=== PATIENT | female | born 1955 | race Caucasian/White ===

== ENCOUNTER → 2023-10-25 12:50 | Outpatient (REF) | payer MEDICARE, OTHER, SELFPAY | LOC: RCS 12:50 | PROVIDERS: ATTENDING PHYSICIAN Family Medicine | DX: R06.02 Shortness of breath (principal); R00.2 Palpitations | CPT/HCPCS: 93017 ==

== ENCOUNTER → 2023-11-05 08:08 | Outpatient (REF) | payer MEDICARE, OTHER, SELFPAY | LOC: RCS 08:08 | PROVIDERS: ATTENDING PHYSICIAN Family Medicine | DX: R06.02 Shortness of breath (principal); R00.2 Palpitations | CPT/HCPCS: 93225; 93226 ==

== ENCOUNTER → 2023-12-25 15:39 | Outpatient (REF) | payer MEDICARE, OTHER, SELFPAY | LOC: WDC 15:39 | PROVIDERS: ATTENDING PHYSICIAN Obstetrics & Gynecology Gynecology; FAMILY PHYSICIAN Family Medicine | DX: Z12.31 Encounter for screening mammogram for malignant neoplasm of breast (principal) | CPT/HCPCS: 77063; 77067 ==

== ENCOUNTER 2024-04-23 06:14 | Day surgery (SDC) | payer MEDICARE, OTHER, SELFPAY | END 2024-04-23 09:24 | disposition home or self-care (01) | LOC: GI 06:14 | PROVIDERS: ATTENDING PHYSICIAN Internal Medicine; FAMILY PHYSICIAN Family Medicine | DX: K51.20 Ulcerative (chronic) proctitis without complications (principal); Q43.8 Other specified congenital malformations of intestine | CPT/HCPCS: 45380; 88305 ==

== ENCOUNTER → 2024-11-02 12:31 | Outpatient (REF) | payer MEDICARE, OTHER, SELFPAY | LOC: RAD 12:31 | PROVIDERS: ATTENDING PHYSICIAN Surgery; FAMILY PHYSICIAN Family Medicine | DX: K43.9 Ventral hernia without obstruction or gangrene (principal) | CPT/HCPCS: 74177; Q9967 ==

== ENCOUNTER → 2024-11-20 06:25 | Outpatient (REF) | payer MEDICARE, OTHER, SELFPAY ==
[2024-11-20 09:08] LABS: Hematocrit 36.6 % (37.0-47.0); Hemoglobin 12.7 g/dL (12.0-16.0); Mean Corp Hgb Conc. 34.7 g/dL (33.0-37.0); Mean Corpuscular Volume 86.9 fL (81.0-99.0); Platelet Count 230 10^3/uL (130-400); Red Cell Dist. Width 13.0 % (11.5-14.5)
[2024-11-20 09:47] LABS: Blood Urea Nitrogen 12 mg/dl (7-17); Calcium 9.4 mg/dl (8.4-10.2); Carbon Dioxide 29 mmol/L (22-30); Chloride 101 mmol/L (98-107); Glucose 89 mg/dl (70-99); Potassium 4.9 mmol/L (3.5-5.1); Sodium 136 mmol/L (135-145); eGFR > 60.00
== END ==
LOC: SDSPAT 06:25
PROVIDERS: ATTENDING PHYSICIAN Surgery; FAMILY PHYSICIAN Family Medicine
DX: Z01.818 Encounter for other preprocedural examination (principal)
CPT/HCPCS: 36415; 80048; 85027; 93005

== ENCOUNTER 2024-11-27 06:18 | Day surgery (SDC) | payer MEDICARE, OTHER, SELFPAY ==
[2024-11-20 14:25] VITALS: BMI 20.7
[2024-11-27] VITALS (9 sets, daily range): BP systolic 114–141; BP diastolic 68–83; BMI 20.7
[2024-11-27] MEDS: TYLENOL 1000 MG PO (08:37)
[2024-11-27] MEDS: NORMOSOL-R/PLASMALYTE-A 1000 IV (08:38)
[2024-11-27] MEDS: DILAUDID 0.5 MG IV (10:57)
[2024-11-27] MEDS: ZOFRAN 4 MG IV (12:26)
== END 2024-11-27 12:45 | disposition home or self-care (01) ==
LOC: SDS 06:18
PROVIDERS: ATTENDING PHYSICIAN Surgery; FAMILY PHYSICIAN Nurse Practitioner Acute Care
DX: K43.9 Ventral hernia without obstruction or gangrene (principal); K42.9 Umbilical hernia without obstruction or gangrene; G47.33 Obstructive sleep apnea (adult) (pediatric)
CPT/HCPCS: 49591

== ENCOUNTER → 2024-12-29 14:15 | Outpatient (REF) | payer MEDICARE, OTHER, SELFPAY | LOC: WDC 14:15 | PROVIDERS: ATTENDING PHYSICIAN Obstetrics & Gynecology Gynecology; FAMILY PHYSICIAN Family Medicine | DX: Z12.31 Encounter for screening mammogram for malignant neoplasm of breast (principal) | CPT/HCPCS: 77063; 77067 ==

== ENCOUNTER → 2025-03-11 06:35 | Outpatient (REF) | payer MEDICARE, OTHER, SELFPAY | LOC: MRI 06:35 | PROVIDERS: ATTENDING PHYSICIAN Orthopaedic Surgery; FAMILY PHYSICIAN Family Medicine | DX: M25.561 Pain in right knee (principal) | CPT/HCPCS: 73721 ==

== ENCOUNTER 2025-05-02 20:35 | Emergency (ER) | payer MEDICARE, OTHER, SELFPAY ==
[2025-05-02 20:42] VITALS: BP 160/83
[2025-05-02 20:58] LABS: Hematocrit 35.8 % (37.0-47.0); Hemoglobin 12.6 g/dL (12.0-16.0); Mean Corp Hgb Conc. 35.2 g/dL (33.0-37.0); Mean Corpuscular Volume 84.8 fL (81.0-99.0); Nucleated Red Blood Cells % 0 %; Platelet Count 233 10^3/uL (130-400); Red Cell Dist. Width 12.0 % (11.5-14.5)
[2025-05-02 21:19] LABS: ALT (SGPT) 24 U/L (0-35); AST (SGOT) 29 U/L (14-36); Albumin 4.9 g/dl (3.5-5.0); Alkaline Phosphatase 71 U/L (38-126); Blood Urea Nitrogen 12 mg/dl (7-17); Calcium 9.6 mg/dl (8.4-10.2); Carbon Dioxide 28 mmol/L (22-30); Chloride 96 mmol/L (98-107); Glucose 96 mg/dl (70-99); Potassium 3.9 mmol/L (3.5-5.1); Sodium 131 mmol/L (135-145); Total Protein 8.2 g/dl (6.3-8.2); eGFR > 60.00
[2025-05-02 21:21] LABS: Troponin I < 0.012 ng/ml
[2025-05-03 00:16] VITALS: BMI 21.2
--- NOTE | 2025-05-03 00:20 | EDRN ---
Pt has had adrenaline rushes for past 3-4 days associated with lightheadedness more acute at nighttime. Pt says she was jolted out of sleep couple times this past month with a 'agustin.' Pt's bp has been intermittently elevated in 150's. Pt took 1/2
xanax past couple nights to help her sleep. Pt uses cpap. Pt complains of feeling 'so jittery I cannot relax.' Pt has not been evaluated for these symptoms. Pt had tightness in her chest tonight which prompted ED visit tonight. No sob.
Intermittent abd pain. No n/v/d - pt has chronic constipation. Last BM today. No fever/cough, occasional chill. No urinary symptoms.
[2025-05-03 00:25] VITALS: BP 150/90
[2025-05-03 01:00] VITALS: BP 152/92
--- NOTE | 2025-05-03 01:03 | ED.GENMED ---
History of Present Illness
General
Chief Complaint: Heart Rate Problem
Source: patient
Exam Limitations: none
Time Seen by Provider: 05/03/25 00:17
Nursing documentation reviewed up to this point in time: agreed with
History of Present Illness
History of Present Illness:
69-year-old female presenting to the emergency department today with concerns of jitteriness palpitations tend to be worse in the evening and at night over the past week or so. Took a half a Xanax prior to arrival with slight improvement. Denies
any specific shortness of breath has had some vague chest discomfort intermittently. Denies nausea vomiting diarrhea or any viral symptoms. Denies fevers.
Review of Systems
Review of Systems
Allergies reviewed?: Yes
All Other Systems: ROS reviewed and negative except as documented in HPI and ROS
Phy Exam
Physical Exam
Physical Exam:
GENERAL: Alert , in no apparent distress
EYE: pupils equal and reactive
NECK: Supple, no significant adenopathy.
ENT: o/p clr, mmm.
CARDIAC: Regular rate and rhythm .
LUNGS: Clear breath sounds bilaterally, no acute respiratory distress, no wheezes/rales/rhonchi
ABDOMEN: Soft, without focal tenderness, no r/g, no cvat
NEUROLOGICAL: Alert and oriented, no focal neuro deficits
SKIN: Warm and dry, skin intact.
MUSCULOSKELETAL: No edema, well perfused.
PSYCH: Normal and appropriate interaction.
Course
Orders/Labs/Results
Orders:
Orders
05/02/25 20:36
EKG [Electrocardiogram (*1)] Urgent
Reason for Study: Palpitations
EKG- Treatment ONCE
05/02/25 20:41
CXR2 [CR Chest - 2 Views ] Urgent
Comment:
Reason For Exam: pain
05/02/25 20:49
Complete Blood Count/With Diff Urgent
Comprehensive Metabolic Panel Urgent
Troponin I Urgent
05/03/25 01:03
Add On- LAB Urgent
Tests Added?: tsh free t4
Abnormal Lab Results
05/02/25
20:49
WBC 2.9 L 10^3/uL
(4.8-10.8)
Hct 35.8 L %
(37.0-47.0)
Absolute Lymphs (auto) 0.6 L 10^3/uL
(1.2-3.4)
Monocytes % 9.7 H %
(1.7-9.3)
Sodium 131 L mmol/L
(135-145)
Chloride 96 L mmol/L
(98-107)
05/02/25 20:49
05/02/25 20:49
Vital Signs
Initial and Last Documented VS:
Initial Vital Signs
Temp Pulse Resp BP Pulse Ox
98.2 F 92 16 160/83 95
05/02/25 20:42 05/02/25 20:42 05/02/25 20:42 05/02/25 20:42 05/02/25 20:42
Last Documented Vital Signs
Temp Pulse Resp BP Pulse Ox
98.2 F 85 17 150/90 95
05/03/25 00:29 05/03/25 00:25 05/03/25 00:25 05/03/25 00:25 05/02/25 20:42
MDM/Problems Addressed
MDM/Problems Addressed:
69-year-old female presenting to the emergency department today with concerns of jitteriness palpitations over the past week 10 to be worse at night. Does have a history of anxiety does not take any daily medications for this. Does have Xanax and
took a dose with slight improvement prior to arrival. On arrival vital signs are normal patient no distress EKG without emergent findings labs unremarkable troponin negative chest x-ray normal no evidence of ACS at this time no evidence of
arrhythmia on the monitor throughout ER stay. No respecters for PE. Low risk for ACS or arrhythmia. Advised for close outpatient follow-up. Return precautions given.
*Pulse Oximetry
SaO2: 95
Oxygen Mode of Delivery: Room air
Patient hypoxic: no (95)
*Critical Care Note
Total Time (30-74mins, 75-104mins- exclusive of procedures): Not Applicable
ED Attending Note
-
Portions of this chart may have been created with voice recognition software.� Occasional wrong word or��sound alike� substitutions may have occurred due to the inherent limitations of voice recognition software.
Discharge Plan
Departure
Patient Disposition: Home (Routine Discharge)
Date of Disposition: 05/03/25
Time of Disposition: 01:04
Patient with high blood pressure during this ER visit?: No
Condition: Good
Covid-19: Not Applicable
Discharge Problem:
Palpitations
Instructions: Palpitations (DC), Chest Pain DCA Follow Up
Prescriptions:
No Action
vitamin B complex Capsule
1 cap PO DAILY
mesalamine [Canasa] 1,000 mg Suppository
1 g [place]
Motility
2 cap PO DAILY
Vitamin C
1 cap PO DAILY
magnesium glycinate
1 cap PO HS
alprazolam [Xanax] 0.5 mg Tablet
0.25 mg PO HS PRN (Reason: anxiety)
Referrals:
Karen Peterson MD [Family Provider, Family Practice]
Activity Restrictions/Additional Instructions:
You came to the emergency department today with concerns of palpitations and additional symptoms. Here your reassuring assessment. Please follow closely with cardiology and your primary care doctor. Return for any worsening, new or concerning
symptoms.
Interventions
Interventions:
*General Assessment Last Done: 05/03/25 00:16
*Neglect/Abuse Screening Last Done: 05/02/25 20:42
*ED COVID-19 Vaccine History Last Done: 05/03/25 00:16
*ED Influenza Vaccine History Last Done: 05/03/25 00:16
[facility] Fall Risk Assessment Tool Last Done: 05/03/25 00:16
*Risk Screen - Suicide (C-SSRS) Last Done: 05/02/25 20:42
ED- Cardiac Assessment Last Done: 05/03/25 00:30
ED- Pulmonary Assessment Last Done: 05/03/25 00:30
Discharge Date and Time
Print Language: OCCITAN
== END 2025-05-03 01:15 | disposition home or self-care (01) ==
LOC: EMR 20:35
PROVIDERS: Emergency Medicine; EMERGENCY PHYSICIAN Emergency Medicine; FAMILY PHYSICIAN Family Medicine
DX: R00.2 Palpitations (principal); R07.89 Other chest pain
CPT/HCPCS: 99285; 71046; 80053; 84443; 84484; 85025; 93005